=== PATIENT | female | born 1985 | race Caucasian/White ===

== ENCOUNTER → 2018-11-28 | Outpatient (CLI) | payer BC ==
--- NOTE | 2018-11-28 17:26 | RAD ---
Thoracic region ultrasound, 11/28/2018: HISTORY: Lump on back The area of clinical concern just to the right of midline in the T-spine region was carefully scanned. There is an elongated subcutaneous mass in this region which is isoechoic and difficult to separate from the adjacent fatty structures. It measures 1.9 x 1.6 x 0.4 cm. A lipoma is suspected. CT scanning is suggested for better delineation, if clinically indicated. Electronically signed by: Juan M Mays MD (11/28/2018 5:23 PM) [facility]
== END | disposition home or self-care (01) ==
LOC: US 16:07
PROVIDERS: ATTEND Family Medicine
DX: R22.2 Localized swelling, mass and lump, trunk (principal)
CPT/HCPCS: 76881